=== PATIENT | male | born 1990 | race Caucasian/White ===

== ENCOUNTER 2020-11-30 19:41 | Emergency (ER) | payer SELFPAY ==
[2020-11-30] MEDS ORDERED: Sodium Chloride 0.9% 10 ML Syringe FLUSH PRN (19:46)
[2020-11-30] MEDS ORDERED: Sodium Chloride 0.9% 1,000 ML IV ONE (19:46)
[2020-11-30] MEDS ORDERED: levETIRAcetam 1,000 MG in Sodium Chloride 0.9% 100 ML IV ONE (20:03)
--- NOTE | 2020-11-30 20:09 | EDM.PDOC ---
ED HPI GENERAL MEDICAL PROBLEM - General Chief Complaint: Head Injury Stated Complaint: Head injury Time Seen by Provider: 11/30/20 20:00 Source of Information: Reports: Patient, EMS, Family History Limitations: Reports: Intoxication - History of Present Illness INITIAL COMMENTS - FREE TEXT/NARRATIVE: Per bystanders, patient was running after a volleyball during a game at the [employer] and struck his head against a brick wall. Patient has no memory of this. He did lose consciousness x 10 seconds. Patient developed bleeding from left ear immediately after the injury. He complains of a mild headache. No neck pain or other injuries. Patient admits to drinking alcohol today. He takes no medications. Duration: Hour(s): (0.5) Location: Reports: Head - Related Data Allergies Allergy/AdvReac Type Severity Reaction Status Date / Time No Known Allergies Allergy Verified 11/30/20 19:48 Home Meds: Home Meds NK [No Known Home Meds] 11/30/20 [History] Past Medical History - Past Health History Medical/Surgical History: Denies Medical/Surgical History Social & Family History - Caffeine Use Caffeine Use: Reports: Coffee, Energy Drinks, Soda - Alcohol Use Alcohol Use History: Yes Date of Last Drink: 11/30/20 Time of Last Drink: 18:00 - Recreational Drug Use Recreational Drug Use: Yes Drug Use in Last 12 Months: Yes Other Recreational Drug Type: states used drugs in past ED ROS GENERAL - Review of Systems Review Of Systems: Comprehensive ROS is negative, except as noted in HPI. ED EXAM, HEAD INJURY - Physical Exam Exam: See Below Exam Limited By: Intoxication General Appearance: Alert, WD/WN, No Apparent Distress Head: Atraumatic, Normocephalic Nexus Criteria: No: Posterior, Midline Cervical Tenderness Eyes: Bilateral Eye: EOMI, PERRL Ears: Other (Right hemotympanum, left hemotypanum with perforation) Nose: Other (dried epistaxis) Throat/Mouth: No Airway Compromise Neck: Non-Tender Respiratory: No Respiratory Distress, Lungs Clear, Normal Breath Sounds Cardiovascular: Regular Rate, Rhythm, No Murmur GI/Abdominal Exam: Soft, Non-Tender Extremities: Normal Range of Motion, Non-Tender Neurologic: No Motor/Sensory Deficits, Alert, Oriented x 3 - [place] Coma Score Best Eye Response ([place]): (4) Open Spontaneously Best Verbal Response ([place]): (5) Oriented Best Motor Response ([place]): (6) Obeys Commands [place] Total: 15 Course - Vital Signs Last Recorded V/S: Last Vital Signs Temp 36.5 C 11/30/20 19:48 Pulse 109 H 11/30/20 19:48 Resp 18 11/30/20 19:48 BP 134/93 H 11/30/20 19:48 Pulse Ox 98 11/30/20 19:48 - Orders/Labs/Meds Orders: Active Orders 24 hr Category Date Time Status Cervical Spine wo Cont [CT] Stat Exams 11/30/20 19:42 Taken Head wo Cont [CT] Stat Exams 11/30/20 19:42 Taken Sodium Chloride 0.9% [Normal Saline] 1,000 ml Med 11/30/20 19:46 Active IV .BOLUS Sodium Chloride 0.9% [Saline Flush] Med 11/30/20 19:46 Active 10 ml FLUSH ASDIRECTED PRN Tranexamic Acid [Cyklokapron] 1,000 mg Med 11/30/20 20:36 Ordered Sodium Chloride 0.9% [Normal Saline] 50 ml IV ONETIME Saline Lock Insert [OM.PC] Routine Oth 11/30/20 19:46 Ordered Medication Orders Sodium Chloride (Normal Saline) 1,000 mls @ 999 mls/hr IV .BOLUS ONE Stop: 11/30/20 20:46 Last Admin: 11/30/20 20:16 Dose: 999 mls/hr Documented by: JAYDE Tranexamic Acid 1,000 mg/ (Sodium Chloride) 60 mls @ 200 mls/hr IV ONETIME ONE Stop: 11/30/20 20:53 Sodium Chloride (Saline Flush) 10 ml FLUSH ASDIRECTED PRN PRN Reason: Keep Vein Open Labs: Laboratory Tests 11/30/20 11/30/20 11/30/20 Range/Units 19:56 19:56 19:56 WBC 9.0 (3.2-10.1) x10-3/uL RBC 4.83 (3.90-5.90) x10(6)uL Hgb 15.7 (12.9-17.7) g/dL Hct 47.3 (38.3-50.1) % MCV 98.0 (80.8-98.7) fL MCH 32.5 (27.0-33.3) pg MCHC 33.1 (28.7-35.3) g/dL RDW 12.2 L (12.4-15.0) % Plt Count 226 (117-477) x10(3)uL MPV 9.2 (6.7-11.0) fL Neut % (Auto) 56.1 (40.3-71.8) % Lymph % (Auto) 34.7 (15.8-45.3) % [place] % (Auto) 6.2 (5.5-15.2) % Eos % (Auto) 2.2 (0.1-6.8) % Baso % (Auto) 0.8 (0.3-3.8) % Neut # (Auto) 5.1 (1.7-6.9) x10-3/uL Lymph # (Auto) 3.1 (0.5-4.5) x10-3/uL Carl[place] # (Auto) 0.6 (0.0-1.2) x10-3/uL Eos # (Auto) 0.2 (0.0-0.6) x10-3/uL Baso # (Auto) 0.1 (0.0-0.3) x10-3/uL PT (9.0-11.1) sec INR (1.00-1.24) Sodium 141 (135-145) mmol/L Potassium 3.3 L (3.5-5.3) mmol/L Chloride 102 (100-110) mmol/L Carbon Dioxide 26 (21-32) mmol/L BUN 13 (7-18) mg/dL Creatinine 1.0 (0.70-1.30) mg/dL Est Cr Clr Drug Dosing TNP Estimated GFR (MDRD) > 60 (>60) BUN/Creatinine Ratio 13.0 (9-20) Glucose 117 H (80-116) mg/dL Calcium 8.9 (8.6-10.2) mg/dL Total Bilirubin 0.5 (0.1-1.3) mg/dL AST 23 (5-25) IU/L ALT 24 (12-36) U/L Alkaline Phosphatase 96 (56-112) IU/L Total Protein 7.7 (6.0-8.0) g/dL Albumin 4.3 (3.5-5.2) g/dL Globulin 3.4 g/dL Albumin/Globulin Ratio 1.3 Ethyl Alcohol 0.16 H* (<0.03) % 11/30/20 Range/Units 19:56 WBC (3.2-10.1) x10-3/uL RBC (3.90-5.90) x10(6)uL Hgb (12.9-17.7) g/dL Hct (38.3-50.1) % MCV (80.8-98.7) fL MCH (27.0-33.3) pg MCHC (28.7-35.3) g/dL RDW (12.4-15.0) % Plt Count (117-477) x10(3)uL MPV (6.7-11.0) fL Neut % (Auto) (40.3-71.8) % Lymph % (Auto) (15.8-45.3) % [place] % (Auto) (5.5-15.2) % Eos % (Auto) (0.1-6.8) % Baso % (Auto) (0.3-3.8) % Neut # (Auto) (1.7-6.9) x10-3/uL Lymph # (Auto) (0.5-4.5) x10-3/uL [place] # (Auto) (0.0-1.2) x10-3/uL Eos # (Auto) (0.0-0.6) x10-3/uL Baso # (Auto) (0.0-0.3) x10-3/uL PT 9.7 (9.0-11.1) sec INR 0.89 L (1.00-1.24) Sodium (135-145) mmol/L Potassium (3.5-5.3) mmol/L Chloride (100-110) mmol/L Carbon Dioxide (21-32) mmol/L BUN (7-18) mg/dL Creatinine (0.70-1.30) mg/dL Est Cr Clr Drug Dosing Estimated GFR (MDRD) (>60) BUN/Creatinine Ratio (9-20) Glucose (80-116) mg/dL Calcium (8.6-10.2) mg/dL Total Bilirubin (0.1-1.3) mg/dL AST (5-25) IU/L ALT (12-36) U/L Alkaline Phosphatase (56-112) IU/L Total Protein (6.0-8.0) g/dL Albumin (3.5-5.2) g/dL Globulin g/dL Albumin/Globulin Ratio Ethyl Alcohol (<0.03) % Meds: Medications Generic Name Dose Route Start Last Admin Trade Name Freq PRN Reason Stop Dose Admin Sodium Chloride 1,000 mls @ 999 mls/hr 11/30/20 19:46 11/30/20 20:16 Normal Saline IV 11/30/20 20:46 999 mls/hr .BOLUS ONE Administration Tranexamic Acid 1,000 mg/ 60 mls @ 200 mls/hr 11/30/20 20:36 Sodium Chloride IV 11/30/20 20:53 ONETIME ONE Sodium Chloride 10 ml 11/30/20 19:46 Saline Flush FLUSH ASDIRECTED PRN Keep Vein Open Discontinued Medications Generic Name Dose Route Start Last Admin Trade Name Freq PRN Reason Stop Dose Admin Levetiracetam 1,000 mg/ Sodium 110 mls @ 400 mls/hr 11/30/20 20:03 11/30/20 20:16 Chloride IV 11/30/20 20:17 400 mls/hr ONETIME ONE Administration - Radiology Interpretation Free Text/Narrative:: CT Head s/ contrast: Right sided subarachnoid hemorrhage. Left basilar skull fracture extending into sphenoid sinus. Mild pneumocephalus is present. (verbal report from [facility] Radiologist) CT C-spine s/ contrast: No fracture or subluxation. (verbal report from [facility] Radiologist) - Re-Assessments/Exams Free Text/Narrative Re-Assessment/Exam: 11/30/20 20:44 Dr. Brown accepts patient for transfer to [facility] ED, recommends Redd examic Acid 1000mg IV. Vitals and GCS stable, will transport by ALS ground. Departure - Departure Time of Disposition: 20:47 Disposition: DC/Tfer to Acute Hospital 02 Condition: Serious Clinical Impression: Traumatic subarachnoid bleed with LOC of 30 minutes or less Qualifiers: Encounter type: initial encounter Qualified Code(s): S06.6X1A - Traumatic subarachnoid hemorrhage with loss of consciousness of 30 minutes or less, initial encounter Basilar skull fracture Qualifiers: Encounter type: initial encounter Fracture type: closed Laterality: left Qualified Code(s): S02.102A - Fracture of base of skull, left side, initial encounter for closed fracture Alcohol intoxication Qualifiers: Complication of substance-induced condition: uncomplicated Qualified Code(s): F10.920 - Alcohol use, unspecified with intoxication, uncomplicated - Discharge Information Forms: ED Department Discharge Sepsis Event Note (ED) - Evaluation Sepsis Screening Result: No Definite Risk - Focused Exam Vital Signs: Vital Signs Temp Pulse Resp BP Pulse Ox 11/30/20 19:48 36.5 C 109 H 18 134/93 H 98 - My Orders Last 24 Hours: My Active Orders 11/30/20 19:42 Cervical Spine wo Cont [CT] Stat Head wo Cont [CT] Stat 11/30/20 19:46 Sodium Chloride 0.9% [Normal Saline] 1,000 ml IV .BOLUS Sodium Chloride 0.9% [Saline Flush] 10 ml FLUSH ASDIRECTED PRN Saline Lock Insert [OM.PC] Routine 11/30/20 20:36 Tranexamic Acid [Cyklokapron] 1,000 mg Sodium Chloride 0.9% [Normal Saline] 50 ml IV ONETIME - Assessment/Plan Last 24 Hours: My Active Orders 11/30/20 19:42 Cervical Spine wo Cont [CT] Stat Head wo Cont [CT] Stat 11/30/20 19:46 Sodium Chloride 0.9% [Normal Saline] 1,000 ml IV .BOLUS Sodium Chloride 0.9% [Saline Flush] 10 ml FLUSH ASDIRECTED PRN Saline Lock Insert [OM.PC] Routine 11/30/20 20:36 Tranexamic Acid [Cyklokapron] 1,000 mg Sodium Chloride 0.9% [Normal Saline] 50 ml IV ONETIME
[2020-11-30] MEDS ORDERED: Tranexamic Acid 1,000 MG in Sodium Chloride 0.9% 50 ML IV ONE (20:36)
== END 2020-11-30 21:15 ==
LOC: FB.ED 19:41
DX: S06.6X1A Traumatic subarachnoid hemorrhage with loss of consciousness of 30 minutes or less, initial encounter (principal); S02.102A Fracture of base of skull, left side, initial encounter for closed fracture; F10.120 Alcohol abuse with intoxication, uncomplicated; W22.8XXA Striking against or struck by other objects, initial encounter; Y93.68 Activity, volleyball (beach) (court)
CPT/HCPCS: 36415; 70450; 72125; 80053; 80307; 85025; 85610; 96365; 96367; 99285; J1953; J7030